=== PATIENT | male | born 1975 | race Caucasian/White ===

== ENCOUNTER → 2016-12-14 | Outpatient (CLI) | payer OTHER ==
[~2016-12-14] MED LIST: OXYCONTIN40 MG PO; PERCOCET 10/31 UDTA1 PO; WELLBUTRIN SR150 M1; ZANAFLEX4 M1 PO
--- NOTE | ~2016-12-14 | CT95 ---
[facility]. [facility] A Service of [facility] & [facility] RADIOLOGY TEXT RESULTS PATIENT: YOUNG TIMMONS LOCATION: [facility] : 73 UNIT #: [id number] AGE: [address]: Kay Campbell MD SEX: M ORDER DR: [id number] [place] [id number] O MR#: [id number] Acc #: [id number] NAME: YOUNG TIMMONS. : 1975 SEX: M STUDY DATE/TIME: 12/14/2016 13:36 UNIT: [facility] ROOM: STUDY DESCRIPTION: CT Lower Ext Rt Wo Cont Attending Physician: Naomy Campbell M.D. Referring Physician: Naomy Campbell M.D. Ordering Physician: Naomy Campbell M.D. Primary Care Physician: Kin Ragland M.D. MEDICAL IMAGING REPORT This report is preliminary unless electronic signature is present. EXAM CT right ankle hind foot without contrast - with coronal and sagittal reconstructions 12/14/2016. HISTORY Order states a right talonavicular fusion. Assess effusion. Foot and ankle swelling. History sheet states surgery May 2016. Properties page states swelling for 2 weeks. COMPARISON Right ankle and foot radiographs dating from 03/11/2016 through 11/25/2016. TECHNIQUE This CT exam was performed with one or more of the following radiation dose reduction techniques: automatic control, adjustment of mA and/or kV according to patient size, and iterative reconstruction. FINDINGS The patient is status post attempted talonavicular fusion with a single cannulated screw across the medial talonavicular articulation. The talonavicular articulation is markedly irregular and arthropathic there is very minimal bridging ossification present involving the plantar lateral aspect of the articulation. The degree effusion is less than 10%. There is prominent osseous debris dorsal and dorsal medial to the talonavicular joint and along the presumed incision site. There is no hardware failure. There is no fracture. There is a sizable pool, osteochondral abnormality of the medial dome of the talus in its anterior aspect. It measures 2.2 cm AP by 1.2 cm transverse by 0.6 cm craniocaudal. The lesion contains a calcific fragmented in situ bodies. [facility]. [facility] A Service of [facility] RADIOLOGY TEXT RESULTS PATIENT: YOUNG TIMMONS LOCATION: [facility] : 73 UNIT #: [id number] AGE: [address]: Kay Campbell MD SEX: M ORDER DR: There is calcaneal enthesophyte formation. There is a sizable os peroneum. Bony alignment is normal. There is mild subtalar arthrosis. There is irregular broad cuboid - navicular articulation. This could be arthropathic or a rare site of a chronic coalition. Midfoot alignment is normal. Soft tissue windows disclose mild soft tissue edema at the operative site and mild to moderate atrophy of the adductor digiti minimi muscle. IMPRESSION 1. Very minimal if any talonavicular fusion (less than 10%) status post cannulated screw placement. 2. Mild subtalar arthrosis. 3. 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 4. Mild soft tissue edema. 5. No fracture. 6. 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 Dictated by... Shaye Ramirez M.D. THIS IS AN ELECTRONICALLY VERIFIED REPORT Shaye Ramirez M.D. at 12/17/2016 9:49 AM [facility]IA/krissy TD: 12/16/2016 13:43 JOB #: [id number] MEDICAL IMAGING REPORT Page 1 of 1
== END | disposition home or self-care (01) ==
LOC: SCT 13:16
DX: M25.471 Effusion, right ankle (principal); M79.89 Other specified soft tissue disorders; M19.071 Primary osteoarthritis, right ankle and foot; M21.6X1 Other acquired deformities of right foot; Z98.1 Arthrodesis status
CPT/HCPCS: 73700